=== PATIENT | female | born 1995 | race Caucasian/White ===

== ENCOUNTER 2020-10-09 06:00 | Inpatient (IN) ==
[2020-10-09] MEDS ORDERED: Ringers Solution, Lactated 1,000 ML ONE (06:27)
[2020-10-09] MEDS ORDERED: Famotidine 20 MG/2 ML VIAL IVP PRN (06:29)
[2020-10-09] MEDS ORDERED: Naloxone 0.4 MG/ML INJ IVP PRN ×2 (06:29→08:14)
[2020-10-09] MEDS ORDERED: miSOPROStoL 25 MCG TABLET PO PRN (06:29)
[2020-10-09] MEDS ORDERED: Metoclopramide 10 MG/2 ML VIAL IVP PRN (06:29)
[2020-10-09] MEDS ORDERED: Oxytocin 20 units/ LR 1000 mL 20 UNIT/1,000 ML BAG IVC SCH ×2 (06:30→18:00)
[2020-10-09] MEDS ORDERED: Penicillin G Potassium 5,000,000 UNIT in 0.9 % Sodium Chloride Mini Bag 100 ML IVPB ONE (06:47)
[2020-10-09] MEDS ORDERED: *HR* Nalbuphine 10 MG/ML AMPUL IV PRN (06:49)
[2020-10-09 07:51] LABS: Basophils # 0.1 K/mcL (0.0-0.2); Basophils % 0.6 %; Eosinophils # 0.2 K/mcL (0.0-0.6); Eosinophils % 1.6 %; Hematocrit 40.1 % (35.3-44.9); Hemoglobin 13.5 g/dL (11.5-15.4); Immature Granulocytes % 0.5 % (0-4); Lymphocytes # 3.7 K/mcL (0.6-4.6); Lymphocytes % 23.7 %; Mean Corpuscular HGB Conc 33.7 g/dL (31.6-35.5); Mean Corpuscular Hemoglobin 28.3 pg (28.0-33.3); Mean Corpuscular Volume 84.1 fL (83.0-100.0); Mean Platelet Volume 10.9 fL (9.4-12.4); Monocytes # 0.8 K/mcL (0.0-1.3); Neutrophils # 10.6 K/mcL (1.6-8.9); Platelet Count 250 K/mcL (140-400); Red Blood Count 4.77 M/mcL (3.82-4.97); Red Cell Distribution Width 12.6 % (11.5-14.5); Segmented Neutrophils % 68.6 %; White Blood Count 15.4 K/mcL (4.3-11.1)
[2020-10-09 08:11] LABS: Amphetamine Screen,Urine Negative ng/mL (Cutoff=1000); Barbiturate Screen,Urine Negative ng/mL (Cutoff=200); Benzodiazepines Screen,Urine Negative ng/mL (Cutoff=200); Cannabinoid Screen,Urine Negative ng/mL (Cutoff = 50); Cocaine Screen,Urine Negative ng/mL (Cutoff= 300); Creatinine,Urine 104 mg/dL; Opiate Screen,Urine Negative ng/mL (Cutoff=300); Phencyclidine Screen,Urine Negative ng/mL (Cutoff=25); Protein/Creatinine Ratio,Urine 0.26 mg/mg (0.00-0.20)
[2020-10-09] MEDS ORDERED: Ropivacaine/PF 0.2% 20 ML VIAL EP ONE (08:14)
[2020-10-09] MEDS ORDERED: Ondansetron 4 MG/2 ML VIAL IVP PRN (08:14)
[2020-10-09] MEDS ORDERED: *HR* FentaNYL (PF) 100 MCG/2 ML VIAL EP ONE (08:14)
[2020-10-09] MEDS ORDERED: EPHEDrine 50 MG/ML VIAL IVP PRN (08:14)
[2020-10-09] MEDS ORDERED: Epidural Premix (fent/bupiv) 110 ML EP SCH (08:15)
[2020-10-09 08:32] LABS: Alanine Aminotransferase 20 Units/L (7-52); Aspartate Amino Transferase 26 Units/L (13-39); BUN/Creatinine Ratio 15 (6-26); Blood Urea Nitrogen 8 mg/dL (6-20); Lactate Dehydrogenase 288 Units/L (140-271); Uric Acid 4.7 mg/dL (2.3-7.6); eGFR For African Americans > 60 (> 60); eGFR For Non-African Americans > 60 (> 60)
[2020-10-09] MEDS ORDERED: Terbutaline 1 MG/ML VIAL SQ ONE (10:29)
[2020-10-09] MEDS: Penicillin G Potassium 2,500,000 UNIT/105 ML MLS IVPB SCH ×2 (12:05→17:04)
[2020-10-09] MEDS: Ringers Solution, Lactated 1,000 ML IVC SCH (17:07)
[2020-10-09] MEDS ORDERED: *HR* Labetalol 20 MG/4 ML SYRINGE IVP ONE ×2 (17:39→17:41)
[2020-10-09] MEDS ORDERED: Oxytocin 20 units/ LR 1000 mL 20 UNIT/1,000 ML BAG IVC ONE (17:50)
[2020-10-09] MEDS ORDERED: Benzocaine/Menthol 56 GM AEROSOL SPRAY TP PRN (17:58)
[2020-10-09] MEDS ORDERED: Measles/Mumps/Rubella Vacc 0.5 ML VIAL SQ PRN (17:58)
[2020-10-09] MEDS: Acetaminophen 325 MG TABLET PO PRN (19:45)
[2020-10-09] MEDS: Ibuprofen 600 MG TABLET PO PRN (19:45)
[2020-10-09] MEDS ORDERED: NIFEdipine XL (24 HR) 60 MG TAB.ER.24 PO SCH (20:15)
[2020-10-09] MEDS: NIFEdipine XL (24 HR) 60 MG TAB.ER.24 PO SCH (20:36)
[2020-10-10] MEDS: Acetaminophen 325 MG TABLET PO PRN ×3 (02:28→13:43)
[2020-10-10] MEDS: Ibuprofen 600 MG TABLET PO PRN ×3 (02:28→13:42)
[2020-10-10] MEDS ORDERED: Lanolin 7 G OINT...G. TP PRN (02:59)
[2020-10-10 03:02] LABS: Basophils % 0.2 %; Eosinophils # 0.1 K/mcL (0.0-0.6); Eosinophils % 0.7 %; Hematocrit 29.7 % (35.3-44.9); Hemoglobin 10.2 g/dL (11.5-15.4); Immature Granulocytes % 0.6 % (0-4); Lymphocytes # 3.1 K/mcL (0.6-4.6); Mean Corpuscular HGB Conc 34.3 g/dL (31.6-35.5); Mean Corpuscular Hemoglobin 28.9 pg (28.0-33.3); Mean Corpuscular Volume 84.1 fL (83.0-100.0); Mean Platelet Volume 11.1 fL (9.4-12.4); Monocytes # 1.3 K/mcL (0.0-1.3); Monocytes % 8.2 %; Neutrophils # 11.5 K/mcL (1.6-8.9); Platelet Count 205 K/mcL (140-400); Red Blood Count 3.53 M/mcL (3.82-4.97); Red Cell Distribution Width 12.7 % (11.5-14.5); Segmented Neutrophils % 71.3 %; White Blood Count 16.1 K/mcL (4.3-11.1)
[2020-10-10 05:07] LABS: Alanine Aminotransferase 14 Units/L (7-52); Aspartate Amino Transferase 25 Units/L (13-39); BUN/Creatinine Ratio 13 (6-26); Blood Urea Nitrogen 7 mg/dL (6-20); Lactate Dehydrogenase 241 Units/L (140-271); Uric Acid 4.3 mg/dL (2.3-7.6); eGFR For African Americans > 60 (> 60); eGFR For Non-African Americans > 60 (> 60)
[2020-10-10] MEDS: NIFEdipine XL (24 HR) 60 MG TAB.ER.24 PO SCH (08:11)
[2020-10-10] MEDS ORDERED: Prenatal Vit/FA 1 EACH TABLET PO SCH (09:00)
[2020-10-10 11:46] VITALS: BP 140/85; PULSE 88; TEMP 97.9; O2SAT 98
== END 2020-10-10 14:05 | disposition home or self-care (01) | DRG 807 ==
LOC: 1NENULAB 06:08 → 1NENUOBS 18:06
PROVIDERS: ADMIT Obstetrics & Gynecology; ATTEND Obstetrics & Gynecology